=== PATIENT | female | born 1970 | race Caucasian/White ===

== ENCOUNTER 2019-01-23 15:53 | Emergency (ER) | payer BC ==
--- NOTE | 2019-01-23 19:37 | ED ---
Neurological HPI - HPI Summary HPI Summary: This pt is a 48 y/o female presenting to [facility] c/o numbness and tingling to left arm since 1300 today. Pt describes numbness as having had left arm out in the cold for a while and having a blood pressure cuff on constantly. She notes her arm is not completely numb, more like increase in pressure around arm. Pt states the numbness starts in her left upper arm and goes down to her wrist. Pt reports currently she still feels pressure on her left arm but it has decreased in severity "like someone holding her arm lightly", around 1/10 in severity. Upon arriving to the ED waiting area she notes she felt left thumb numbness, nausea, and lightheaded. She reports this didn't last too long. Pt denies any injury to her left arm, however she did have left arm surgery last summer. Denies chest pain/tightness/heaviness, SOB, neck pain, fever, diaphoresis, cough. Denies hx of high cholesterol, HTN, DM. Pt was told by her PCP she had hypoglycemia but pt has not been keeping track of it. Pt does smoke 1/2 PPD. Denies taking any control pills. FHx: DM and HTN. Denies FHx of cardiac disease, blood clots, or aneurysms. Her PCP is at [place]. - History of Current Complaint Chief Complaint: EDNeurologicalDeficit Stated Complaint: NUMBNESS IN LEFT ARM PER PT Time Seen by Provider: 01/23/19 18:52 Hx Obtained From: Patient Onset/Duration: Started hours ago, Still Present Timing: Constant Onset Severity: Moderate Current Severity: Mild Neurological Deficit Location: LUE Pain Intensity: 0 Pain Scale Used: 0-10 Numeric Character: Numbness/Tingling Aggravating: Nothing Alleviating: Nothing Associated Signs and Symptoms: Positive: Numbness. Negative: Dizziness, Nausea/ Vomiting, Fever, Chest Pain, Shortness of Breath - Allergy/Home Medications Allergies/Adverse Reactions: Allergies Allergy/AdvReac Type Severity Reaction Status Date / Time No Known Allergies Allergy Verified 01/23/19 15:57 PMH/Surg Hx/FS Hx/Imm Hx Endocrine/Hematology History: Denies: Hx Diabetes Cardiovascular History: Denies: Hx Hypercholesterolemia, Hx Hypertension - Surgical History Surgical History: Yes Surgery Procedure, Year, and Place: left arm surgery Infectious Disease History: No Infectious Disease History: Denies: Traveled Outside the [place] in Last 30 Days - Family History Known Family History: Positive: Hypertension, Diabetes Negative: Cardiac Disease - Social History Alcohol Use: None Substance Use Type: Reports: None Smoking Status (MU): Light Every Day Tobacco Smoker Review of Systems Negative: Fever, Chills Negative: Erythema Negative: Sore Throat Negative: Chest Pain Negative: Shortness Of Breath, Cough Positive: Nausea. Negative: Abdominal Pain, Vomiting Negative: dysuria, hematuria Negative: Myalgia, Edema Negative: Rash Neurological: Other - NEGATIVE: dizzines. POSITIVE: lightheaded Positive: Paresthesia, Numbness All Other Systems Reviewed And Are Negative: Yes Physical Exam - Summary Physical Exam Summary: Constitutional: Well-developed, Well-nourished, Alert. (-) Distressed Skin: Warm, Dry HENT: Normocephalic; Atraumatic Eyes: Conjunctiva normal Neck: Musculoskeletal ROM normal neck. (-) JVD, (-) Stridor, (-) Tracheal deviation Cardio: Rhythm regular, rate normal, Heart sounds normal; Intact distal pulses; The pedal pulses are 2+ and symmetric. Radial pulses are 2+ and symmetric. (-) Murmur Pulmonary/Chest wall: Effort normal. (-) Respiratory distress, (-) Wheezes, (-) Rales Abd: Soft. (-) Tenderness, (-) Distension, (-) Guarding, (-) Rebound Musculoskeletal: (-) Edema Lymph: (-) Cervical adenopathy Neuro: Alert, Oriented x3, Strength normal, Cranial nerves II-XII are grossly intact. (-) Dysmetria, (-) Nystagmus, (-) Ataxia by finger to nose testing, (-) Sensory deficit. Patient reports numbness from left deltoid down fingertips but sensation was preserved. Psych: Mood and affect Normal GCS: 15 Triage Information Reviewed: Yes Vital Signs On Initial Exam: Initial Vitals Temp Pulse Resp BP Pulse Ox 98.5 F 81 17 153/100 100 01/23/19 15:55 01/23/19 15:55 01/23/19 15:55 01/23/19 15:55 01/23/19 15:55 Vital Signs Reviewed: Yes Procedures - Sedation Patient Received Moderate/Deep Sedation with Procedure: No Diagnostics - Vital Signs Vital Signs Temp Pulse Resp BP Pulse Ox 01/23/19:25 100 01/23/19 19:00 71 100 01/23/19 18:59 71 99 01/23/19 18:58 74 136/102 100 01/23/19 17:57 100 F 73 18 124/80 99 01/23/19 15:55 98.5 F 81 17 153/100 100 - Laboratory Lab Results: Lab Results 01/23/19 Range/Units 16:05 POC Glucose (mg/dL) 120 H (70-100) mg/dL Result Diagrams: 01/23/19 19:38 01/23/19 19:38 Lab Statement: Any lab studies that have been ordered have been reviewed, and results considered in the medical decision making process. - CT Brain CT CT Interpretation Completed By: Radiologist Summary of CT Findings: IMPRESSION: No acute intracranial abnormality. Dr. Edwards has reviewed this report. Cervical spine CT CT Interpretation Completed By: Radiologist Summary of CT Findings: IMPRESSION: Mild cervical spondylopathy at C5-C6. No canal stenosis or nerve root compression. Dr. Edwards has reviewed this report. - EKG 1922 Cardiac Rate: NL - at 69 bpm EKG Rhythm: Sinus Rhythm Summary of EKG Findings: EKG at 1922 shows normal sinus rhythm at a rate of 69 bpm. No STEMI. Re-Evaluation - Re-Evaluation First Eval Re-Evaluation Time: 21:04 Comment: All symptoms have resolved. Course/Dx - Course Assessment/Plan: Pt is a 48 y/o female [facility] c/o numbness and tingling to left arm since 1300 today. Pt describes numbness as having had left arm out in the cold for a while and having a blood pressure cuff on constantly. She notes her arm is not completely numb, more like increase in pressure around arm. Pt states the numbness starts in her left upper arm and goes down to her wrist. Pt reports currently she still feels pressure on her left arm but it has decreased in severity "like someone holding her arm lightly", around 1/10 in severity. Lab results show WBC of 11.9, calcium of 11.1. Brain CT is negative for an intracranial abnormality. Cervical spine CT shows Mild cervical spondylopathy at C5-C6. No canal stenosis or nerve root compression. Risk factor for [place] include smoking. EKG is normal. All symptoms have resolved, most likely outpatient follow up. Pt will be signed out to Dr. Jurado pending second troponin and disposition. - Diagnoses Provider Diagnoses: Left arm numbness Discharge ED - Sign-Out/Discharge Documenting (check all that apply): Sign-Out Patient Signing out patient TO: Juan Francisco Jurado - pending second troponin - Discharge Plan Condition: Stable Referrals: No Primary Care Phys,NOPCP [Primary Care Provider] - - Attestation Statements Document Initiated by Scribe: Yes Documenting Scribe: Tahmina Beasley Provider For Whom Scribe is Documenting (Include Credential): Jorje Edwards MD Scribe Attestation: ITahmina, scribed for Jorje Edwards MD on 01/23/19 at 2230. Status of Scribe Document: Ready
[2019-01-23 19:58] LABS: ABS Basophils 0.1 10^3/ul (0-0.2); ABS Lymphocytes 1.6 10^3/ul (1.0-4.8); ABS Monocytes 0.4 10^3/ul (0-0.8); ABS Neutrophils 9.8 10^3/ul (1.5-7.7); Eosinophil % 0.3 %; Hematocrit 41 % (35-47); Hemoglobin 13.8 g/dL (12.0-16.0); Lymphocyte % 13.4 %; Mean Corpuscular HGB Conc 34 g/dL (31-36); Mean Corpuscular Hemoglobin 32 pg (27-31); Mean Corpuscular Volume 94 fL (80-97); Mean Platelet Volume 9.2 fL (7.4-10.4); Platelet Count 215 10^3/uL (150-450); Red Blood Count 4.36 10^6 /uL (3.70-4.87); Red Cell Distribution Width 14 % (10-15); White Blood Count 11.9 10^3/uL (3.5-10.8)
[2019-01-23 20:02] LABS: Albumin 4.7 g/dL (3.2-5.2); Albumin/Globulin Ratio 1.6 (1-3); BUN/Creatinine Ratio 8.4 (8-20); Calcium 11.1 mg/dL (8.6-10.3); EGFR African American 89.6 (>60); Potassium 4.5 mmol/L (3.5-5.0); Total Bilirubin 0.4 mg/dL (0.2-1.0); Total Protein 7.7 g/dL (6.4-8.9)
--- NOTE | 2019-01-23 22:25 | ED ---
Progress - Progress Note Progress Note: Pt is a signout from Dr. Edwards at 2200 pending 2nd troponin. Re-Evaluation - Re-Evaluation First Eval Re-Evaluation Time: 21:04 Comment: All symptoms have resolved. Course/Dx - Course Course Of Treatment: Pt is a signout from Dr. Edwards at 2200 pending 2nd troponin. Her 2nd troponin is negative. She will be sent home. - Diagnoses Provider Diagnoses: Paresthesia Discharge ED - Sign-Out/Discharge Documenting (check all that apply): Patient Departure, Receiving Sign-Out Receiving patient FROM: Jorje Edwards - Discharge Plan Condition: Stable Disposition: HOME Patient Education Materials: Paresthesia (ED) Referrals: [facility] [Outside] - If Needed - Billing Disposition and Condition Condition: STABLE Disposition: Home - Attestation Statements Document Initiated by Jessica: Yes Documenting Scribe: Nallely Pdailla Provider For Whom Jessica is Documenting (Include Credential): Juan Francisco Jurado MD. Scribe Attestation: Nallely Marie scribed for Juan Francisco Jurado MD. on 01/24/19 at 0623. Scribe Documentation Reviewed: Yes Provider Attestation: The documentation as recorded by the timureNallely accurately reflects the service I personally performed and the decisions made by , Juan Francisco Jurado MD. Status of Scribe Document: Viewed
[2019-01-23 23:13] VITALS: BP 130/85
== END 2019-01-23 23:07 | disposition home or self-care (01) ==
LOC: ED 15:53
DX: R20.2 Paresthesia of skin (principal); F17.200 Nicotine dependence, unspecified, uncomplicated
CPT/HCPCS: 36415; 70450; 72125; 80053; 83605; 84484; 85025; 93005; 99283

== ENCOUNTER 2019-03-29 14:34 | Emergency (ER) | payer BC ==
--- NOTE | 2019-03-29 15:08 | ED ---
Back Pain - HPI Summary HPI Summary: 48 year old F [facility] accompanied by complains of lower left back pain described as stabbing since 0300 03/29/2019. Patient states she is unable to stand up straight due to the pain. She states the pain does not radiate to her abdomen. It occasionally radiates down her lower extremities. Patient denies pain or burning with urination, hematuria, upper back pain, fecal dysfunction. No hx kidney stones. Hx bilateral kidney infection 18 years ago. The patient rates the pain 4/10 in severity. Symptoms aggravated by nothing. Symptoms alleviated by ibuprofen 400 mg taken at 0300 and naproxen taken at 1300. Medications reviewed. No recent trauma/injury/fall. Has an appointment with her primary care provider scheduled for 04/04/2019. - History of Current Complaint Chief Complaint: EDBackInjuryPain Stated Complaint: LOWER BACK PAIN PER PT Time Seen by Provider: 03/29/19 15:01 Hx Obtained From: Patient Onset/Duration: Lasting Hours - 03003/29/2019, Still Present Onset/Duration: Started Hours Ago - 0300 03/29/2019, Still Present Timing: Constant Back Pain Location: Is Discrete @ - lower left back, Radiates To - bilateral lower extremities Severity Currently: Moderate Pain Intensity: 4 Pain Scale Used: 0-10 Numeric Aggravating Symptom(s): Nothing Alleviating Symptom(s): OTC Meds Associated Signs And Symptoms: Positive: Negative - pain or burning with urination, hematuria, upper back pain, fecal dysfunction - Allergies/Home Medications Allergies/Adverse Reactions: Allergies Allergy/AdvReac Type Severity Reaction Status Date / Time No Known Allergies Allergy Verified 01/23/19 15:57 Home Medications: Home Medications Ibuprofen TAB* [Advil TAB*] 400 mg PO Q6H PRN 03/29/19 [History Confirmed ] Naproxen TAB* [Naprosyn 250 mg TAB*] 500 mg PO Q8H PRN 03/29/19 [History Confirmed 03/29/19] PMH/Surg Hx/FS Hx/Imm Hx Endocrine/Hematology History: Denies: Hx Diabetes Cardiovascular History: Denies: Hx Hypercholesterolemia, Hx Hypertension History: Reports: Hx Kidney Infection - 2001 Denies: Hx Kidney Stones - Surgical History Surgery Procedure, Year, and Place: left arm surgery - Immunization History Date of Influenza Vaccine: >3 years ago Infectious Disease History: No Infectious Disease History: Denies: Traveled Outside the [place] in Last 30 Days - Family History Known Family History: Positive: Hypertension, Diabetes Negative: Cardiac Disease - Social History Alcohol Use: None Substance Use Type: Reports: None Hx Tobacco Use: Yes Smoking Status (MU): Light Every Day Tobacco Smoker Review of Systems Gastrointestinal: Negative - fecal dysfunction Negative: burning, hematuria, pain Musculoskeletal: Negative - upper back pain Positive: Other - lower left back pain All Other Systems Reviewed And Are Negative: Yes Physical Exam - Summary Physical Exam Summary: Constitutional: Well-developed, Well-nourished, Alert. (-) Distressed Skin: Warm, Dry HENT: Normocephalic; Atraumatic Eyes: Conjunctiva normal Neck: Musculoskeletal ROM normal neck. (-) JVD, (-) Stridor, (-) Tracheal deviation Cardio: Rhythm regular, rate normal, Heart sounds normal; Intact distal pulses; The pedal pulses are 2+ and symmetric. Radial pulses are 2+ and symmetric. (-) Murmur Pulmonary/Chest wall: Effort normal. (-) Respiratory distress, (-) Wheezes, (-) Rales Abd: Soft, (-) tenderness, (-) Distension, (-) Guarding, (-) Rebound Back: Focal tenderness over left lower back in region of SI joint Musculoskeletal: (-) Edema Lymph: (-) Cervical adenopathy Neuro: Alert, Oriented x3 Psych: Mood and affect Normal Triage Information Reviewed: Yes Vital Signs On Initial Exam: Initial Vitals Temp Pulse Resp BP Pulse Ox 97.4 F 71 18 147/94 100 03/29/19 14:39 03/29/19 14:39 03/29/19 14:39 03/29/19 14:39 03/29/19 14:39 Vital Signs Reviewed: Yes Procedures - Sedation Patient Received Moderate/Deep Sedation with Procedure: No Diagnostics - Vital Signs Vital Signs Temp Pulse Resp BP Pulse Ox 03/29/19 14:39 97.4 F 71 18 147/94 100 - Laboratory Lab Statement: Any lab studies that have been ordered have been reviewed, and results considered in the medical decision making process. Re-Evaluation - Re-Evaluation First Eval Re-Evaluation Time: 16:30 Change: Improved Comment: patient understands and agrees to d/c instructions Back Pain Course/Dx - Course Course Of Treatment: 48 y/o F presents with stabbing lower left back pain that occasionally radiates to lower extremities starting at 0300 03/29/2019. No pain or burning with urination, hematuria, upper back pain, fecal dysfunction. Took ibuprofen and naproxen prior to arrival with some relief. No recent trauma/ injury/fall. Upon exam, the patient has focal tenderness over left lower back in region of SI joint. Urinalysis results with no significant abnormalities. In the ED course, the patient was given Flexeril and lidocaine patch after which her symptoms improved. Patient will be discharged home with prescription for Flexeril and lidocaine patch and follow up from [facility] in 2 -3 days. Patient was instructed to return to Emergency Department for new or worsening symptoms. Patient understands and is agreeable to this plan. - Diagnoses Provider Diagnoses: Low back strain Discharge ED - Sign-Out/Discharge Documenting (check all that apply): Patient Departure - Discharge Plan Condition: Stable Disposition: HOME Prescriptions: Cyclobenzaprine TAB* [Flexeril 10 MG TAB*] 10 mg PO TID PRN #15 tab PRN Reason: Spasms - Back Lidocaine PATCH 5%* [Lidoderm 5% Patch*] 1 patch TRANSDERM DAILY #10 patch Patient Education Materials: Low Back Strain (ED) Referrals: [facility] [Outside] - 2 Days Additional Instructions: Follow up with [facility] in 2-3 days. Return to the Emergency Department for new or worsening symptoms. - Billing Disposition and Condition Condition: STABLE Disposition: Home - Attestation Statements Document Initiated by Jenniferibe: Yes Documenting Scribe: Ophelia Rapp Provider For Whom Jessica is Documenting (Include Credential): Michael Nolasco DO Scribe Attestation: Ophelia Marie, scribed for Michael Nolasco DO on 03/29/19 at 1709. Scribe Documentation Reviewed: Yes Provider Attestation: The documentation as recorded by the Ophelia everett accurately reflects the service I personally performed and the decisions made by me, Michael Nolasco DO Status of Scribe Document: Viewed
[2019-03-29] MEDS ORDERED: Cyclobenzaprine TAB* 10 MG PO ONE (15:11)
[2019-03-29] MEDS ORDERED: Lidocaine PATCH 5%* 1 PATCH TRANSDERM ONE (15:11)
[2019-03-29 16:05] LABS: Urine Appearance Clear; Urine Bilirubin Negative (Negative); Urine Blood 1+ (Negative); Urine Color Yellow; Urine Glucose Negative (Negative); Urine Ketones Negative (Negative); Urine Nitrite Negative (Negative); Urine Protein Negative (Negative); Urine Specific Gravity 1.008 (1.010-1.030); Urine Urobilinogen Negative (Negative)
[2019-03-29 16:08] LABS: Urine Bacteria Absent (Absent); Urine Red Blood Cell Trace(0-2/hpf) (Absent); Urine Squamous Epithelial Cell Present (Absent); Urine White Blood Cell Absent (Absent)
[2019-03-29 16:44] VITALS: BP 128/80
[2019-03-29] MEDS ORDERED: Lidocaine Patch REMOVE* 1 NOTE MISC SCH (21:00)
== END 2019-03-29 16:43 | disposition home or self-care (01) ==
LOC: ED 14:34
DX: S39.012A Strain of muscle, fascia and tendon of lower back, initial encounter (principal); X58.XXXA Exposure to other specified factors, initial encounter; Y92.9 Unspecified place or not applicable; F17.200 Nicotine dependence, unspecified, uncomplicated
CPT/HCPCS: 81003; 81015; 99282; A9270-GY